=== PATIENT | male | born 1960 | race Caucasian/White ===

== ENCOUNTER 2020-12-02 17:15 | Emergency (ER) | payer OTHER, SELFPAY ==
[2020-12-02 17:18] VITALS: BP 140/91; PULSE 76; RESP 22; TEMP 36.9; O2SAT 97; BMI 32.7
--- NOTE | 2020-12-02 17:21 | NURSING ---
NO OLD EKGS
--- NOTE | 2020-12-02 17:30 | EKG12_ITS ---
Test Reason : REPEAT EKG Blood Pressure : / mmHG Vent. Rate : 080 BPM Atrial Rate : 080 BPM P-R Int : 158 ms QRS Dur : 102 ms QT Int : 390 ms P-R-T Axes : 027 -37 002 degrees QTc Int : 449 ms Normal sinus rhythm Left axis deviation Abnormal ECG Confirmed by HEATHER PIMENTEL, ZACHARY ([id number]), real estate underwriter JESSY PETERS ([id number]) on 12/03/2020 9:25:54 AM Referred By: MATT Confirmed By:ZACHARY ROMERO MD
--- NOTE | 2020-12-02 17:31 | ED.VIS.DYS ---
HPI History of Present Illness Chief Complaint: Shortness of Breath Informant: patient Onset/Context/Timing Onset: Weeks Context: sudden and - (Onset is not related to activity and there is no precipitating factors) Timing: Intermittent and Lasts (May last up to 30 minutes) Quality: Negative for Dyspnea on exertion, Orthopnea, PND and Wheezing Current Severity: Mild Maximum Severity: Severe Worsened by: Nothing Relieved by: Nothing Associated Symptoms cough; Negative for rhinorrhea, post nasal drip, ear pain, fever, sore throat, chills, sweats, clear sputum, white sputum, yellow sputum or green sputum Chest Pain: Positive for Intermittent and Pleuritic (Superior the xiphoid process) Narrative Narrative: Patient is a 60-year-old male with history of anxiety disorder and hypercholesterolemia who presents because of shortness of breath associated with nausea while driving. He drives significant amount. Because he felt lightheaded and was nauseous he pulled over and presents to the emergency department. He reports intermittent shortness of breath over the past several weeks. He also reports pleuritic chest pain when he becomes short of breath. He denies history of VTE. He denies leg pain, swelling discoloration. He denies recent surgery or immobilization. He denies acute upper respiratory or viral-like symptoms. He does report mild headache. He denies history of hiatal hernia, GERD or peptic ulcer disease. He denies black or maroon-colored stool. He denies any change in his bowel habits. He denies food intolerance. He denies radiation of the discomfort. He does report history of anxiety. This is different. He states he has had 4 prior anxiety episodes and he states he felt like he was having a heart attack and presented to the emergency department. He does report being under stress recently. PE Risk Factors: Positive for Recent travel; Negative for Cancer, OCP + Smoking + > 35, Prior DVT or PE, Recent immobilization and Recent surgery Prior similar symptoms: No Recent Illness/Hospitalization: No PFSH PFSH Medical History Anxiety Depression Diverticulitis Normal colonoscopy Home Medications atorvastatin [Lipitor] 10 mg PO DAILY 12/02/20 [History Last Taken Unknown] buspirone 20 mg PO BID 12/02/20 [History Last Taken Unknown] escitalopram oxalate [Lexapro] 20 mg PO DAILY 12/02/20 [History Last Taken Unknown] lamotrigine 200 mg PO BID 12/02/20 [History Last Taken Unknown] levothyroxine 75 mcg PO DAILY 12/02/20 [History Last Taken Unknown] lorazepam 0.5 mg PO BID PRN 12/02/20 [History Last Taken Unknown] sildenafil 25 mg PO DAILY PRN 12/02/20 [History Last Taken Unknown] Allergy/AdvReac Type Severity Reaction Status Date / Time prednisone AdvReac Other Verified 12/02/20 17:17 Social History (Updated 12/02/20 @ 17:[address] David Dietz MD) Smoking Status: Current every day smoker alcohol intake: current alcohol intake frequency: a few times a month substance use type: does not use ROS ROS ED Constitutional Constitutional ED: Denies chills, fever(s), sweats or weight loss Eyes Eyes: Denies blurry vision, change in vision or diplopia ENT ENT ED: Denies ear pain, rhinorrhea or sore throat Cardiovascular Cardiovascular: Reports chest pain; Denies orthopnea, palpitations, paroxysmal nocturnal dyspnea or racing heartbeat Respiratory/Chest Respiratory/Chest: Reports cough and dyspnea; Denies dyspnea on exertion, orthopnea, paroxysmal nocturnal dyspnea or sputum Gastrointestinal Gastrointestinal: Reports nausea; Denies abdominal pain, diarrhea, melena or vomiting Musculoskeletal Musculoskeletal: Denies arthralgias, back pain, myalgias or neck pain Integumentary Denies Abrasions or rash Neurologic Neurologic: Reports headache(s); Denies paresthesias or weakness Psychiatric Psychiatric: Reports anxiety and depression; Denies suicidal thoughts Hematologic/Lymphatic Hematologic/Lymphatic: Denies easy bleeding or easy bruising EXAM Physical Exam Const Vital Signs: 12/02/20 17:18 12/02/20 17:24 12/02/20 18:22 Temperature 98.5 F Temperature Source Oral Pulse Rate 76 75 Respiratory Rate 22 H 21 H Respiratory Effort Short of Breath Respiratory Pattern Normal Blood Pressure 140/91 H 136/88 H Blood Pressure Mean 107 104 Pulse Ox 97 100 Oxygen Delivery Method Room Air Room Air 12/02/20 19:09 Temperature Temperature Source Pulse Rate 88 Respiratory Rate 24 H Respiratory Effort Respiratory Pattern Blood Pressure 119/79 Blood Pressure Mean 92 Pulse Ox 94 Oxygen Delivery Method Room Air Positive well nourished and well developed General Appearance ED: well developed and NAD; Negative for pallor HEENT Reports moist mucous membranes atraumatic; Negative for tenderness Eyes PERRL and EOMs intact bilaterally General Eye ED: Negative for pale conjunctiva or scleral icterus Neck no lymphadenopathy, supple, no meningeal signs and no JVD Resp normal respiratory effort and clear to auscultation bilaterally Effort and Inspection: Negative for pain with movement Cardio regular rate, regular rhythm, S1 normal heart sound, S2 normal heart sound and no murmurs GI non-tender, non-distended and no masses Auscultation: normoactive bowel sounds Palpation: soft; Negative for hepatomegaly or splenomegaly Back/Spine no CVA tenderness and normal to inspection Extremity normal to inspection Extremity Narrative: There is no asymmetry, swelling, discoloration, leg vein distention, palpable cords or tenderness along the distribution of the deep venous system. Neuro oriented x3 and CN's II-XII intact bilaterally Sensorium / Orientation: alert Speech: speech normal Gait (Neuro): normal gait Psych mental status grossly normal Skin no wounds and skin turgor normal General Skin Exam: Negative for jaundice or pallor Lesions: no lesions Rashes: no rashes MDM MDM MDM Narrative Medical decision making narrative: With complaint of shortness of breath and pleuritic chest pain need to consider pleurisy versus pulmonary embolus (patient is not PERC negative a D-dimer was obtained. BMP was obtained to assess renal function. Chest x-ray was obtained to determine there is any pulmonary etiology and EKG to rule out atypical presentation of cardiac ischemia. When EKG was performed patient was having symptoms. D-dimer was normal. Two-view chest x-ray turbid by me is negative. Electrolyte panel was unremarkable. Patient with pleuritic pain and dyspnea with no obvious etiology. Suspect this is due to anxiety. Lab Data Labs: Laboratory Results - last 24 hr 12/02/20 12/02/20 17:23 17:23 D-Dimer Quant (PE/DVT) 0.35 Sodium 137 Potassium 3.8 Chloride 106 Carbon Dioxide 26.0 Anion Gap 5 BUN 18 Creatinine 1.15 Estim Creat Clear Calc 67.74 Est GFR (MDRD) Af Amer 84 Est GFR (MDRD) Non-Af 69 BUN/Creatinine Ratio 15.7 Glucose 96 Calcium 9.2 Total Bilirubin 0.50 AST 16 ALT 31 Alkaline Phosphatase 80 Total Protein 7.8 Albumin 4.3 Globulin 3.5 Albumin/Globulin Ratio 1.2 Radiography Diagnostic Testing: Radiology Impression Chest X-Ray 12/02/20 17:45 IMPRESSION: Normal x-ray examination of the chest. Electronically Signed: Danilo Vazquez MD at 18:02 EDT Tel , Service support , Rhythm Strip Rhythm Strip: Sinus Rhythm Rate: 77 Ectopy: PVC(s) EKG Initial EKG: Interpretation: Sinus Rhythm Comments: Normal sinus rhythm with a ventricular rate of 76. [place] interval is 156 ms. QS duration 100 ms. QT duration 402 ms. [place] to the left. There is no ischemic changes noted. There is a symmetrically mildly inverted T wave in lead III which is a normal variant. Discharge Plan Triage Chief Complaint: Shortness of Breath ED Provider: David Dietz Dx/Rx/DC Orders Clinical Impression: Pleuritic chest pain, Shortness of breath at rest, Anxiety Instructions: ED Anxiety Reaction, ED Pleurisy Prescriptions: No Action lorazepam 0.5 mg Tablet 0.5 mg PO BID PRN (Reason: Anxiety) RF: 0 lamotrigine 200 mg Tablet 200 mg PO BID RF: 0 atorvastatin [Lipitor] 10 mg Tablet 10 mg PO DAILY RF: 0 sildenafil 25 mg Tablet 25 mg PO DAILY PRN (Reason: Erectile Dysfunction) RF: 0 levothyroxine 75 mcg Tablet 75 mcg PO DAILY RF: 0 buspirone 10 mg Tablet 20 mg PO BID RF: 0 escitalopram oxalate [Lexapro] 20 mg Tablet 20 mg PO DAILY RF: 0 Referrals: PADMAJA LOPEZ [Other] - 1 Week if not improving
[2020-12-02] MEDS: 0.9% Normal Saline 1,000 ML 1000 ML IV (17:34)
--- NOTE | 2020-12-02 17:45 | RAD_ITS ---
STUDY: X-RAY CHEST REASON FOR EXAM: Male, 60 years old. Cough, shortness of breath, pleuritic chest pain TECHNIQUE: PA and lateral views of the chest. COMPARISON: None. FINDINGS: The lungs are clear and expanded. There is no demonstrated pleural abnormality. Normal size heart. Normal mediastinum and colin. Normal visualized pulmonary arteries. Normal visualized aortic arch and descending thoracic aorta. Normal visualized thoracic spine. Normal visualized ribs, clavicles, and shoulders. There is no demonstrated abnormality of the visualized soft tissue structures of the upper abdomen. RAD/Chest PA and Lateral IMPRESSION: Normal x-ray examination of the chest. Electronically Signed: Danilo Vazquez MD at 18:02 EDT Tel , Service support ,
[2020-12-02 18:07] LABS: D-Dimer Quantitative (DVT/PE) 0.35 FEU/ug/m (0.27-0.49)
[2020-12-02 18:08] LABS: ALB/GLOB Ratio 1.2 RATIO (0.9-2.4); AST(SGOT) 16 U/L (15-37); Alanine Aminotransfer ALT/SGPT 31 U/L (16-61); Albumin, Serum 4.3 g/dL (3.2-5.0); Alkaline Phosphatase 80 U/L (45-117); Anion Gap 5 (5-15); BUN 18 mg/dL (7-18); BUN/Creat Ratio 15.7 RATIO (10-20); Calcium,Total 9.2 mg/dL (8.5-10.1); Chloride 106 mmol/L (98-107); Creatinine, Serum 1.15 mg/dL (0.70-1.30); EST Glomerular Filtration Rate 69 mL/min (>60); Est Glom Filt Rate - Afr Amer 84 mL/min (>60); Estimated Creatinine Clearance 67.74 ml/min; Globulin 3.5 g/dL (2.2-4.2); Glucose 96 mg/dL (74-106); Potassium 3.8 mmol/L (3.5-5.1); Protein, Total 7.8 g/dL (6.4-8.2); Sodium Level 137 mmol/L (136-145)
[2020-12-02 18:22] VITALS: BP 136/88; PULSE 75; RESP 21; O2SAT 100
--- NOTE | 2020-12-02 18:42 | EKG12_ITS ---
Test Reason : CP Blood Pressure : / mmHG Vent. Rate : 076 BPM Atrial Rate : 076 BPM P-R Int : 150 ms QRS Dur : 100 ms QT Int : 402 ms P-R-T Axes : 023 -39 007 degrees QTc Int : 452 ms Normal sinus rhythm Left axis deviation Abnormal ECG Confirmed by HEATHER PIMENTEL, ZACHARY ([id number]), food expeditor JESSY PETERS ([id number]) on 12/03/2020 9:29:33 AM Referred By: CAITLYN Confirmed By:ZACHARY ROMERO MD
[2020-12-02 19:09] VITALS: BP 119/79; PULSE 88; RESP 24; O2SAT 94
== END 2020-12-02 19:53 | disposition home or self-care (01) ==
PROVIDERS: Emergency Provider Emergency Medicine
DX: R07.81 Pleurodynia (principal); R06.02 Shortness of breath; F41.9 Anxiety disorder, unspecified; R51.9 Headache, unspecified; I49.3 Ventricular premature depolarization; F32.9 Major depressive disorder, single episode, unspecified; I25.2 Old myocardial infarction; E78.00 Pure hypercholesterolemia, unspecified; Z87.19 Personal history of other diseases of the digestive system; Z79.899 Other long term (current) drug therapy; F17.200 Nicotine dependence, unspecified, uncomplicated
CPT/HCPCS: 71046; 80053; 85379; 93005; 96360; 96361; 99284; J7030; A4216